=== PATIENT | male | born 1975 | race Caucasian/White ===

== ENCOUNTER 2020-06-18 21:01 | Emergency (ER) | payer SELFPAY ==
[~2020-06-18 21:01] MED LIST: CLINDAMYCIN HC150 MG PO; LODINE CAP 300300 MG PO
[2020-06-18 21:47] LABS: HEMOGLOBIN 15.7 gm/dl (14.0-17.5); RED BLOOD COUNT 4.62 M/UL (4.20-5.50); WHITE BLOOD COUNT 12.7 K/UL (4.5-11.0)
[2020-06-18 21:58] LABS: BUN/CREATININE RATIO 11 (0-10)
[2020-06-18] MEDS ORDERED: ZOFRAN4 MG PO (23:52)
[2020-06-18] MEDS ORDERED: TORADOL 10 MG T10 MG PO (23:52)
[2020-06-19] MEDS ORDERED: PERCOCET 5-3251 EACH PO (00:24)
== END 2020-06-19 00:45 | disposition home or self-care (01) ==
LOC: ER1 21:01
PROVIDERS: Physician Assistant Medical
DX: N13.2 Hydronephrosis with renal and ureteral calculous obstruction (principal); F17.210 Nicotine dependence, cigarettes, uncomplicated; Z88.0 Allergy status to penicillin
CPT/HCPCS: 80053; 81001; 85025; 96374; 96375; 99284; J1885; J2270; J2405; J7030

== ENCOUNTER 2020-07-13 08:12 | Emergency (ER) | payer BC ==
[~2020-07-13 08:12] MED LIST changes: +PERCOCET 5-3251 EACH PO; +TORADOL 10 MG T10 MG PO; +ZOFRAN4 MG PO
[2020-07-13] MEDS ORDERED: NAPROSYN500 MG PO (10:36)
[2020-07-13] MEDS ORDERED: CEPHALEXIN500 MG PO (10:36)
[2020-07-13] MEDS ORDERED: FLOMAX 0.4 MG0.4 MG PO (10:36)
== END 2020-07-13 11:10 | disposition home or self-care (01) ==
LOC: ER1 08:12
DX: R10.12 Left upper quadrant pain (principal); R10.32 Left lower quadrant pain; F17.200 Nicotine dependence, unspecified, uncomplicated; Z87.442 Personal history of urinary calculi; Z88.0 Allergy status to penicillin
CPT/HCPCS: 74018; 81001; 99284

== ENCOUNTER 2021-09-13 17:25 | Emergency (ER) | payer MEDICAID ==
[~2021-09-13] VITALS: Ht 182.9 cm; Wt 77.1 kg
[~2021-09-13 17:25] MED LIST changes: +CEPHALEXIN500 MG PO; +FLOMAX 0.4 MG0.4 MG PO; +NAPROSYN500 MG PO
[2021-09-13 17:57] LABS: RED BLOOD COUNT 4.76 M/UL (4.20-5.50); WHITE BLOOD COUNT 9.9 K/UL (4.5-11.0)
[2021-09-13 18:26] LABS: BUN/CREATININE RATIO 16 (0-10)
== END 2021-09-14 17:15 | disposition home or self-care (01) ==
LOC: ER1 17:25 → CDU 19:01
PROVIDERS: Emergency Medicine
DX: I20.0 Unstable angina (principal); F17.200 Nicotine dependence, unspecified, uncomplicated; F17.210 Nicotine dependence, cigarettes, uncomplicated; M95.4 Acquired deformity of chest and rib; K21.9 Gastro-esophageal reflux disease without esophagitis; Z51.81 Encounter for therapeutic drug level monitoring; Z88.0 Allergy status to penicillin; Z87.442 Personal history of urinary calculi
CPT/HCPCS: 71045; 78452; 80053; 82550; 82553; 84484; 85025; 85610; 85730; 93005; 96374; 99285; A9502; J1644; J2785